=== PATIENT | male | born 1955 | race Caucasian/White ===

== ENCOUNTER 2017-11-23 17:40 | Emergency (ER) | payer OTHER ==
[2017-11-23 18:03] VITALS: BP 159/89
[2017-11-23] MEDS ORDERED: Meclizine TAB* 12.5 MG PO ONE (19:02)
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
== END 2017-11-23 19:28 | disposition home or self-care (01) ==
LOC: UCEAST 17:40
DX: H81.10 Benign paroxysmal vertigo, unspecified ear (principal); E86.0 Dehydration; R03.0 Elevated blood-pressure reading, without diagnosis of hypertension; R53.83 Other fatigue; R11.0 Nausea; I49.3 Ventricular premature depolarization; Z87.442 Personal history of urinary calculi; N40.0 Benign prostatic hyperplasia without lower urinary tract symptoms
CPT/HCPCS: 93005; 99212; A9270-GY; G0463

== ENCOUNTER 2017-11-30 20:36 | Emergency (ER) | payer OTHER ==
[2017-11-30] MEDS ORDERED: Meclizine TAB* 12.5 MG PO ONE (21:28)
[2017-11-30] MEDS ORDERED: Prochlorperazine TAB* 10 MG PO ONE (21:29)
--- NOTE | 2017-11-30 22:02 | ED ---
Ajay Cardoso Gabriel, scribed for Jarett Sanchez MD on 11/30/17 at 2100 . Dizziness - HPI Summary HPI Summary: This patient is a 62 year old M presenting to [facility] accompanied by his with a chief complaint of dizziness that began at 1530 today. A week ago the patient went in to for dizziness and dx BPPV for the last week he is dizzy on lying mostly at night. He states he was straining to use the bathroom when symptoms began. He has felt light headed and dazed. He states he has not symptoms during the day before today. The patient rates the pain 0/10 in severity. Patient reports nausea, vomiting, and impaired balance. Pt reports symptoms feel similar to prior episodes but worse and not only when lying down. - History Of Current Complaint Chief Complaint: EDDizziness Stated Complaint: DIZZINESS, NAUSEA Hx Obtained From: Patient Timing: Constant Severity Initially: Moderate Severity Currently: Mild Character: Lightheaded, Dizzy Aggravating Factor(s): Other - lying down Associated Signs And Symptoms: Positive: Other: - nausea, vomiting, light headedness, and impaired balance. Related History: Similar Episode/Dx as - BPPV - Allergies/Home Medications Allergies/Adverse Reactions: Allergies Allergy/AdvReac Type Severity Reaction Status Date / Time finasteride AdvReac See Comment Verified 11/30/17 20:41 PMH/Surg Hx/FS Hx/Imm Hx Cardiovascular History: Reports: Hx Hypertension, Other Cardiovascular Problems/ Disorders - PVC's Respiratory History: Denies: Hx Chronic Bronchitis, Hx Chronic Obstructive Pulmonary Disease (COPD ) History: Reports: Hx Benign Prostatic Hyperplasia Denies: Hx Chronic Renal Failure Musculoskeletal History: Denies: Hx Congenital Bone Abnormalities Neurological History: Denies: Hx CVA, Hx Seizures, Hx Spinal Cord Injury, Hx Transient Ischemic Attacks (TIA), Hx CVP - Cancer History Cancer Type, Location and Year: BASAL CELL CA REMOVED X 2 - Surgical History Surgery Procedure, Year, and Place: TONSILLECTOMY. KIDNEY STONE REMOVAL 2009 Infectious Disease History: No Infectious Disease History: Denies: Traveled Outside the [place] in Last 30 Days - Family History Known Family History: Positive: Cardiac Disease - grandfather at 59, uncle 57, mother [place] at 70, Hypertension, Diabetes - Social History Lives: With Family Alcohol Use: Daily Alcohol Amount: 4-5 oz red wine daily Substance Use Type: Reports: None Smoking Status (MU): Never Smoked Tobacco Review of Systems Constitutional: Other - impaired balance Positive: Vomiting, Nausea Neurological: Other - dizziness, light headedness All Other Systems Reviewed And Are Negative: Yes Physical Exam - Summary Physical Exam Summary: Appearance: Well-appearing, Well-nourished, lying in bed comfortably Skin: Warm, dry, no obvious rash Eyes: sclera anicteric, no conjunctiva pallor, Head impulse test is consistent to peripheral vertigo, Fine motor ataxia is nml, Gross motor ataxia: no gait or trunk ataxia, Rombergs is negative. ENT: mucous membranes moist, pharynx appears normal, Neck: Supple, nontender Respiratory: Clear to auscultation, no signs of respiratory distress Cardiovascular: Normal S1, S2. No murmurs. Normal distal pulses in tibial and radial bilaterally. Abdomen: Soft, nontender, normal active bowel sounds present Musculoskeletal: Normal, Strength/ROM Intact Neurological: A&Ox3, awake and alert, mentation is normal, speech is fluent and appropriate Psychiatric: affect is normal, does not appearing anxious or depressed Triage Information Reviewed: Yes Vital Signs On Initial Exam: Initial Vitals Temp Pulse Resp BP Pulse Ox 97.6 F 81 16 120/77 97 11/30/17 20:38 11/30/17 20:38 11/30/17 20:38 11/30/17 20:38 11/30/17 20:38 Vital Signs Reviewed: Yes Diagnostics - Vital Signs Vital Signs Temp Pulse Resp BP Pulse Ox 11/30/17 20:38 97.6 F 81 16 120/77 97 - Laboratory Lab Statement: Any lab studies that have been ordered have been reviewed, and results considered in the medical decision making process. Re-Evaluation - Re-Evaluation First Eval Re-Evaluation Time: 21:25 Change: Improved Comment: We went through the Deandre maneuver and the patients symtpoms have slightly resolved. Dizzy Course/Dx - Diagnoses Provider Diagnoses: Peripheral vertigo Discharge - Sign-Out/Discharge Documenting (check all that apply): Discharge/Admit/Transfer - Discharge Plan Condition: Good Disposition: HOME Prescriptions: Meclizine TAB* [Antivert 12.5 TAB*] 25 mg PO TID PRN #30 tab PRN Reason: Dizziness Prochlorperazine TAB* [Compazine Tab*] 10 mg PO Q8H PRN #20 tab PRN Reason: Nausea/Vomiting Referrals: Manpreet Camacho MD [Primary Care Provider] - - Billing Disposition and Condition Condition: GOOD Disposition: HOME The documentation as recorded by the Ajay godinez Gabriel accurately reflects the service I personally performed and the decisions made by me, Jarett Sanchez MD.
[2017-12-09 15:06] VITALS: BP 00/0
== END 2017-11-30 21:42 | disposition home or self-care (01) ==
LOC: ED 20:36
DX: H81.399 Other peripheral vertigo, unspecified ear (principal); R11.2 Nausea with vomiting, unspecified; I10 Essential (primary) hypertension; N40.0 Benign prostatic hyperplasia without lower urinary tract symptoms; Z85.828 Personal history of other malignant neoplasm of skin
CPT/HCPCS: 99282; A9270-GY; Q0164